=== PATIENT | female | born 1990 | race Caucasian/White ===

== ENCOUNTER 2017-07-27 17:59 | Inpatient (IN) | payer OTHER ==
[~2017-07-27] VITALS: Ht 157.5 cm; Wt 69.3 kg
[2017-07-27 18:07] VITALS: Ht 157.5 cm; Wt 69.3 kg
[2017-07-27 18:08] VITALS: BP 112/60; PULSE 66; RESP 20
[2017-07-27] MEDS ORDERED: OXYTOCIN 30 UNITS/LR 500 ML IV SCH ×4 (18:30→23:33)
[2017-07-27] MEDS ORDERED: IBUPROFEN 600 MG TAB PO PRN (18:30)
[2017-07-27] MEDS ORDERED: BUTORPHANOL 2 MG INJ IV PRN (18:30)
[2017-07-27] MEDS ORDERED: AMPICILLIN 2 GM/NS (PMX) 100 ML IV ONE (18:30)
[2017-07-27] MEDS ORDERED: LACTATED RINGER'S 1,000 ML IV SCH (18:30)
[2017-07-27] MEDS ORDERED: METHYLERGONOVINE 0.2 MG INJ IM PRN (18:30)
[2017-07-27] MEDS ORDERED: LIDOCAINE 1% (MPF) 30 ML INJ INJ PRN (18:30)
[2017-07-27] MEDS ORDERED: MISOPROSTOL 200 MCG TAB PR PRN (18:30)
[2017-07-27] MEDS ORDERED: OXYTOCIN 30 UNITS/LR 500 ML IV PRN (18:30)
[2017-07-27] MEDS ORDERED: CARBOPROST 250 MCG INJ IM PRN (18:30)
[2017-07-27 19:42] LABS: BASOPHILS % 0.2 % (0.0-2.0); EOSINOPHILS # 0.1 10^3/ul (0.0-0.5); EOSINOPHILS % 0.7 % (0.0-7.0); HEMATOCRIT 35.9 % (37.0-47.0); HEMOGLOBIN 12.6 g/dl (12.0-16.0); LYMPHOCYTES # 1.8 10^3/ul (0.8-2.9); LYMPHOCYTES % 20.7 % (15.0-51.0); MEAN CORPUSCULAR HEMOGLOBIN 31.3 pg (29.0-33.0); MEAN CORPUSCULAR HGB CONC 35.1 g/dl (32.0-37.0); MEAN CORPUSCULAR VOLUME 89.3 fl (82.0-101.0); MEAN PLATELET VOLUME 12.5 fl (7.4-10.4); MONOCYTE # 0.6 10^3/ul (0.3-0.9); MONOCYTES % 7.2 % (0.0-11.0); NEUTROPHILS % 70.7 % (39.0-77.0); PLATELET COUNT 147 10^3/UL (140-415); RED BLOOD COUNT 4.02 10^6/ul (4.20-5.40); WHITE BLOOD COUNT 8.5 10^3/ul (4.8-10.8)
[2017-07-27 19:57] LABS: INR 0.89; PROTIME 12.1 Sec (11.9-14.9); PT RATIO 0.9
[2017-07-27 19:58] LABS: PARTIAL THROMBOPLASTIN TIME 27.9 Sec (25.0-35.0)
--- NOTE | 2017-07-27 23:33 | HP ---
Date/Time of Note Date/Time of Note DATE: 07/27/17 TIME: 23:28 OB - History Hx of Present Free Text/Dictation She came in labor today on July 27 She came dilated to 3 cm dilation 70% effacement She was admitted for delivery Her due date was August 30 Chief Complaint: Uterine contractions every 3 minutes Last Menstrual Period: Nov 20, 2016 Estimated Due Date: Aug 01, 2017 : 3 Para: 2 Care: Good Care Ultrasounds: Normal mid trimester US Obstetrical Complications: None Medical Complications: None Past Family/Social History * Past Medical, Surgical, Family and Obstetric Histories reviewed from chart. Blood Type: O+ Rubella: immune RPR/VDRL: Negative GBS Status: Positive HBsAG: Negative OB Admission Exam Vital Signs Vital Signs Vital Signs Date Time Temp Pulse Resp B/P Pulse Ox O2 Delivery O2 Flow Rate FiO2 07/27/17 18:08 98.2 66 20 112/60 Physical Exam HEENT: WNL Heart: Rhythm Normal Lungs: Clear, Equal Abdomen: WNL Extremities: Normal Reflexes: Normal Cervical Dilatation: 3cm Effacement: 75% Station: -2 Membranes: Intact Accelerations: Accelerations Present Varibility: Moderate Contractions on Admission: 6-10 Minutes Apart Intensity: Moderate Last 72 hours Lab Results CBC & BMP 07/27/17 15:20 OB Assessment/Plan Reason for admission: active labor Plan: Expectant Management Other plan: Delivery SUKI PEDRAZA MD Jul 27, 2017 23:33
[2017-07-27] MEDS ORDERED: AMPICILLIN 1 GM/NS (PMX) 50 ML ONE (23:40)
--- NOTE | 2017-07-27 23:59 | LDN ---
Date/Time of Note Date/Time of Note DATE: 07/27/17 TIME: 23:57 Delivery Summary Spontaneous vaginal delivery Baby girl Apgars 9 No lacerations No bleeding Patient tolerated the procedure well without anesthesia She was transferred stable with good contraction of the uterus and no active bleeding Weeks of Gestation 40 week Placenta Delivered: Spontaneously Meconium: none Episiotomy: No Sponge & Needle done & correct: Yes Any foreign bodies felt in the: No Problems: Delivery Information Sex Infant Sex: female Apgars 1 Minute: 9 5 Minute: 9 Suctioning Nose & mouth suctioned at malik: Yes Umbilical Cord Umbilical cord with: 3 Vessels Cord presentations: no nuchal cord Cord Blood was obtained: Yes Mother & Baby Disposition Disposition Mom & Baby to Maternity; Good: Yes SUKI PEDRAZA MD Jul 27, 2017 23:59
[2017-07-28] VITALS (7 sets, daily range): BP systolic 100–122; BP diastolic 56–72; PULSE 63–83; RESP 17–20
[2017-07-28] MEDS ORDERED: OXYTOCIN 30 UNITS/LR 500 ML IV PRN
[2017-07-28] MEDS ORDERED: DIBUCAINE 1% 30 GM OINT PR PRN
[2017-07-28] MEDS ORDERED: ONDANSETRON 4 MG INJ IV PRN
[2017-07-28] MEDS ORDERED: MISOPROSTOL 200 MCG TAB PR PRN
[2017-07-28] MEDS ORDERED: METHYLERGONOVINE 0.2 MG INJ IM PRN
[2017-07-28] MEDS ORDERED: HYDROCODONE/APAP (5/325) TAB PO PRN ×2
[2017-07-28] MEDS ORDERED: CARBOPROST 250 MCG INJ IM PRN
[2017-07-28] MEDS ORDERED: AMPICILLIN 1 GM/NS (PMX) 50 ML IV SCH
[2017-07-28] MEDS ORDERED: DIPHENHYDRAMINE 25 MG CAP PO PRN
[2017-07-28] MEDS ORDERED: LANOLIN 7 GM TUBE TOP PRN
[2017-07-28] MEDS ORDERED: BENZOCAINE 20% 56 ML SPRAY TOP PRN
[2017-07-28] MEDS ORDERED: ACETAMINOPHEN 325 MG TAB PO PRN ×2
[2017-07-28] MEDS ORDERED: AMPICILLIN 1 GM/NS (PMX) 50 ML IVPB SCH (01:00)
[2017-07-28] MEDS: IBUPROFEN 800 MG TAB PO SCH ×5 (01:51→17:54)
[2017-07-28] MEDS: SENNA/DOCUSATE NA (8.6MG/50MG) TAB PO SCH ×2 (08:50→21:06)
[2017-07-28 11:15] LABS: BASOPHILS % 0.3 % (0.0-2.0); EOSINOPHILS # 0.1 10^3/ul (0.0-0.5); EOSINOPHILS % 1.1 % (0.0-7.0); HEMATOCRIT 34.6 % (37.0-47.0); HEMOGLOBIN 11.8 g/dl (12.0-16.0); LYMPHOCYTES # 1.7 10^3/ul (0.8-2.9); LYMPHOCYTES % 16.9 % (15.0-51.0); MEAN CORPUSCULAR HEMOGLOBIN 30.7 pg (29.0-33.0); MEAN CORPUSCULAR HGB CONC 34.1 g/dl (32.0-37.0); MEAN CORPUSCULAR VOLUME 90.1 fl (82.0-101.0); MONOCYTE # 0.8 10^3/ul (0.3-0.9); MONOCYTES % 8.1 % (0.0-11.0); NEUTROPHIL # 7.2 10^3/ul (1.6-7.5); NEUTROPHILS % 73.2 % (39.0-77.0); PLATELET COUNT 122 10^3/UL (140-415); RED BLOOD COUNT 3.84 10^6/ul (4.20-5.40); RED CELL DISTRIBUTION WIDTH 13.3 % (11.5-14.5); WHITE BLOOD COUNT 9.8 10^3/ul (4.8-10.8)
--- NOTE | 2017-07-28 11:50 | PN ---
Date/Time of Note Date/Time of Note DATE: 07/28/17 TIME: 11:47 OB Subjective Subjective Subjective Feels tired but stable Uterus contracted Lochia normal Unable to sleep last night No complaints except for tiredness CBC normal OB Objective HEENT: WNL Heart: Rhythm Normal Lungs: Clear, Equal Abdomen: WNL Extremities: Normal Reflexes: Normal SUKI PEDRAZA MD Jul 28, 2017 11:50
[2017-07-28] MEDS ORDERED: INFLUENZA VIRUS VACCINE 0.5 ML (DISPENSING) IM* ONE (17:00)
[2017-07-29 04:00] VITALS: BP 109/59; PULSE 79; RESP 18
[2017-07-29] MEDS: IBUPROFEN 800 MG TAB PO SCH ×4 (05:53→17:20)
[2017-07-29 07:30] VITALS: BP 109/56; PULSE 73; RESP 16
[2017-07-29 07:40] VITALS: BP 115/74; PULSE 73; RESP 16
[2017-07-29] MEDS ORDERED: MEASLES,MUMPS,RUBELLA VACCINE INJ SC* ONE (09:00)
[2017-07-29] MEDS ORDERED: DIPHTH/TET/ACEL PERTUSS (ADULT) 0.5 ML VIAL IM* ONE (09:00)
[2017-07-29] MEDS ORDERED: VARICELLA VACCINE LIVE/PF 1,350 UNIT/0.5 ML ML SC* ONE (09:00)
[2017-07-29] MEDS: SENNA/DOCUSATE NA (8.6MG/50MG) TAB PO SCH ×2 (09:39→21:18)
--- NOTE | 2017-07-29 15:34 | PN ---
Date/Time of Note Date/Time of Note DATE: 07/29/17 TIME: 15:29 OB Subjective Subjective Subjective Post day day 2 Doing Well Afebrile Ambulatory Chest Clear Breasts are soft , Nipples are intact Abdomen is soft Fundus is firm Moderate amount of lochia No calf tenderness No ankle edema New born is doing well, Breast feeding Current Medications Medications (Trade) Dose Ordered Sig/[place] Route PRN Reason Start Time Stop Time Status Last Admin Dose Admin Lactated Ringer's 1,000 ml @ 125 mls/hr Q8H IV 07/27/17 18:30 07/27/17 23:37 DC 07/27/17 19:34 Ampicillin 100 ml @ 100 mls/hr ONCE ONCE IV 07/27/17 18:30 07/27/17 19:29 DC 07/27/17 20:09 Ampicillin (Ampicillin 1 Gm/ NS (Pmx)) 50 ml @ 100 mls/hr Q4H IV 07/28/17 00:00 07/28/17 00:00 DC 07/27/17 23:40 Butorphanol Tartrate (Stadol) 2 mg Q2H PRN IV PAIN 07/27/17 18:30 07/27/17 23:37 DC Lidocaine 30 ml 30 ml ONCE PRN INJ EPISIOTOMY/TEARING 07/27/17 18:30 07/27/17 23:37 DC Oxytocin/Lactated Ringer's 500 ml @ 500 mls/hr ONCE POST IV 07/27/17 18:30 07/27/17 23:37 DC 07/27/17 23:57 Oxytocin/Lactated Ringer's 500 ml @ 125 mls/hr POST IV 07/27/17 18:30 07/27/17 23:37 DC 07/28/17 00:00 Ibuprofen 600 mg 600 mg ONCE PRN PO Mild Pain (Pain Score 1-3) 07/27/17 18:30 07/27/17 23:37 DC Oxytocin/Lactated Ringer's 500 ml @ 0 mls/hr ONCE PRN IV For Hemorrhage Management 07/27/17 18:30 07/27/17 23:37 DC Methylergonovine Maleate (Methergine) 0.2 mg ONCE PRN IM VAGINAL BLEEDING 07/27/17 18:30 07/27/17 23:37 DC Carboprost Tromethamine (Hemabate) 250 mcg ONCE PRN IM VAGINAL BLEEDING 07/27/17 18:30 07/27/17 23:37 DC Misoprostol 1000 mcg 1,000 mcg ONCE PRN GA VAGINAL BLEEDING 07/27/17 18:30 07/27/17 23:37 DC Oxytocin/Lactated Ringer's 500 ml @ 0 mls/hr TITRATE IV 07/27/17 21:00 07/27/17 23:37 DC Oxytocin/Lactated Ringer's 500 ml @ 50 mls/hr Q10H IV 07/27/17 23:33 07/28/17 09:32 DC 07/28/17 01:51 Ibuprofen (Motrin) 800 mg Q6 PO 07/28/17 00:00 07/29/17 11:23 Acetaminophen (Tylenol Tab) 650 mg Q4H PRN PO PAIN LEVEL 1-5 07/28/17 00:00 07/28/17 10:27 Acetaminophen/ Hydrocodone Bitart ([place] (5/325)) 1 tab Q4H PRN PO PAIN LEVEL 1-5 07/28/17 00:00 07/28/17 05:12 Acetaminophen/ Hydrocodone Bitart (Vina (5/325)) 2 tab Q4H PRN PO PAIN LEVEL 6-10 07/28/17 00:00 Ondansetron HCl (Zofran Inj) 4 mg Q6H PRN IV NAUSEA AND/OR VOMITING 07/28/17 00:00 Diphenhydramine HCl (Benadryl) 25 mg Q6H PRN PO PRURITUS 07/28/17 00:00 Senna/Docusate Sodium (Senokot-S) 1 tab BID PO 07/28/17 09:00 07/29/17 09:39 Benzocaine (Dermoplast [place]) 1 spray BEDSIDE MEDICATION PRN TOP HEMORRHOID/EPISIOTMY PAIN 07/28/17 00:00 07/28/17 05:14 Dibucaine (Nupercainal) 1 applic BEDSIDE MEDICATION PRN GA HEMORRHOID/EPISIOTMY PAIN 07/28/17 00:00 Lanolin (Ooh-A-Vzwexk) 1 applic BEDSIDE MEDICATION PRN TOP BEDSIDE FOR STEPH TO NIPPLES 07/28/17 00:00 07/28/17 05:14 Measles/Mumps/ Rubella Vaccine Live (Mmr Ii Vaccine) 0.5 ml ONCE ONCE SC* 07/29/17 09:00 07/29/17 09:01 DC Diphtheria/ Tetanus/Acell Pertussis (Adacel) 0.5 ml ONCE ONCE IM* 07/29/17 09:00 07/29/17 09:01 DC 07/29/17 09:41 Varicella Virus Vaccine Live (Varivax Vaccine With Diluent) 1,350 unit ONCE ONCE SC* 07/29/17 09:00 07/29/17 09:01 DC Acetaminophen 650 mg 650 mg Q4H PRN PO ELEVATED TEMPERATURE 07/28/17 00:00 Oxytocin/Lactated Ringer's 500 ml @ 0 mls/hr ONCE PRN IV For Hemorrhage Management 07/28/17 00:00 Methylergonovine Maleate (Methergine) 0.2 mg ONCE PRN IM VAGINAL BLEEDING 07/28/17 00:00 Carboprost Tromethamine (Hemabate) 250 mcg ONCE PRN IM VAGINAL BLEEDING 07/28/17 00:00 Misoprostol 1000 mcg 1,000 mcg ONCE PRN GA VAGINAL BLEEDING 07/28/17 00:00 Ampicillin 50 ml @ ud STK-MED ONCE .ROUTE 07/27/17 23:40 07/27/17 23:41 DC Ampicillin (Ampicillin 1 Gm/ NS (Pmx)) 50 ml @ 100 mls/hr Q4 IVPB 07/28/17 01:00 07/28/17 01:53 DC Influenza Virus Vaccine (Fluzone) 0.5 ml ONCE ONCE IM* 07/28/17 17:00 07/28/17 17:01 DC 07/28/17 17:56 . She delivered at midnight actually 23.46 hours on July 27 she will stay here today and go home tomorrow. The baby also needs to stay in the hospital for a total of at least 48 hours She will be discharged home tomorrow ANAHI RAMOS MD Jul 29, 2017 15:34
[2017-07-29 16:00] VITALS: BP 118/54; PULSE 82; RESP 18
[2017-07-29 19:30] VITALS: BP 114/70; PULSE 77; RESP 18
[2017-07-30 04:00] VITALS: BP 130/75; PULSE 70; RESP 18
[2017-07-30] MEDS: IBUPROFEN 800 MG TAB PO SCH ×3 (06:05→11:51)
[2017-07-30 07:30] VITALS: BP 126/76; PULSE 66; RESP 18
[2017-07-30] MEDS: SENNA/DOCUSATE NA (8.6MG/50MG) TAB PO SCH (09:06)
--- NOTE | 2017-07-30 12:34 | PD.PPDC ---
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
--- NOTE | 2017-07-30 12:38 | DS ---
Date/Time of Note Date/Time of Note DATE: 07/30/17 TIME: 12:37 Obstetrical Discharge Record Final Diagnosis Final Diagnosis: Term delivered Vaginal Delivery Obstetrical Delivery: Spontaneous Complications Augmentation: No Induction: No Condition on Discharge Physical Assessment Voiding: Yes Bowel Movement: Yes Breast: Soft, non-tender, Filling Fundus: Firm Calf Tenderness: No Patient Condition: Good SUKI PEDRAZA MD Jul 30, 2017 12:38
== END 2017-07-30 14:11 | disposition home or self-care (01) | DRG 775 ==
LOC: OBT 17:59 → L-D 18:00 → OBT 18:25 → PP1 07-28 01:29
PROVIDERS: ADMIT Obstetrics & Gynecology; ATTEND Obstetrics & Gynecology
PROC: 10E0XZZ Delivery of Products of Conception, External Approach (ICD-10-PCS; principal; 2017-07-27)
PROC: 3E033VJ Introduction of Other Hormone into Peripheral Vein, Percutaneous Approach (ICD-10-PCS; 2017-07-27)
DX: O48.0 Post-term pregnancy (principal); Z37.0 Single live birth; Z3A.40 40 weeks gestation of pregnancy
CPT/HCPCS: 85025; 85610; 85730; 86592; 86850; 86900; 86901; 87340; 90686; 90715; 90716; G0463; J0290; J2590; J7120